=== PATIENT | female | born 1990 | race African-American/Black ===

== ENCOUNTER 2017-10-23 20:14 | Emergency (ER) | payer MEDICAID, OTHER ==
[~2017-10-23] VITALS: Ht 170.2 cm; Wt 118.5 kg
[2017-10-24] MEDS ORDERED: IBUPROFEN 600MG TABLET PO ONE (01:45)
[2017-10-24] MEDS ORDERED: OSELTAMIVIR 75MG CAPSULE PO ONE (01:45)
[2017-10-24 02:15] VITALS: BP 138/79
== END 2017-10-24 02:15 | disposition home or self-care (01) ==
LOC: ER 21:00
DX: J11.1 Influenza due to unidentified influenza virus with other respiratory manifestations (principal); F17.210 Nicotine dependence, cigarettes, uncomplicated
CPT/HCPCS: 87804; 99284

== ENCOUNTER 2018-06-14 11:09 | Emergency (ER) | payer OTHER ==
[~2018-06-14] VITALS: Ht 170.2 cm; Wt 95.0 kg
[2018-06-14 11:44] VITALS: BP 133/81
== END 2018-06-14 16:49 | disposition left against medical advice (07) ==
LOC: ER 14:41
DX: R07.9 Chest pain, unspecified (principal); Z53.21 Procedure and treatment not carried out due to patient leaving prior to being seen by health care provider
CPT/HCPCS: 93005

== ENCOUNTER 2018-10-16 01:26 | Emergency (ER) | payer OTHER, MEDICAID ==
[~2018-10-16] VITALS: Ht 170.2 cm; Wt 117.1 kg
[2018-10-16] MEDS ORDERED: AMOXICILLIN/POTASSIUM CLAVULANATE 875/125MG TAB PO ONE (03:00)
[2018-10-16] MEDS ORDERED: PROMETHAZINE/DEXTROMETHORPHAN 6.25-15MG/5ML BOTTLE 120ML PO PRN (03:15)
[2018-10-16] MEDS ORDERED: NEOMYCIN-POLYMYXIN B-HYDROCORTISONE 1% OTIC SOLN 10ML RIGHT EAR ONE (03:15)
[2018-10-16 04:03] VITALS: BP 11/75
== END 2018-10-16 04:06 | disposition home or self-care (01) ==
LOC: ER 01:26
DX: B34.9 Viral infection, unspecified (principal); H60.501 Unspecified acute noninfective otitis externa, right ear; F17.200 Nicotine dependence, unspecified, uncomplicated
CPT/HCPCS: 81025; 99283

== ENCOUNTER 2022-11-19 13:35 | Emergency (ER) | payer MEDICAID, OTHER | END 2022-11-19 15:03 | disposition left against medical advice (07) | LOC: ER 13:43 | DX: Z53.21 Procedure and treatment not carried out due to patient leaving prior to being seen by health care provider (principal) ==

== ENCOUNTER 2022-11-19 16:13 | Emergency (ER) | payer MEDICAID ==
[~2022-11-19] VITALS: Ht 177.8 cm; Wt 106.0 kg
[2022-11-19 17:12] VITALS: BP 141/88
== END 2022-11-19 19:06 | disposition home or self-care (01) ==
LOC: ER 16:13
DX: S09.21XA Traumatic rupture of right ear drum, initial encounter (principal); W22.8XXA Striking against or struck by other objects, initial encounter; R03.0 Elevated blood-pressure reading, without diagnosis of hypertension; Y93.E8 Activity, other personal hygiene; Y92.012 Bathroom of single-family (private) house as the place of occurrence of the external cause
CPT/HCPCS: 81025; 99282

== ENCOUNTER 2024-03-31 04:10 | Emergency (ER) | payer MEDICAID ==
[~2024-03-31] VITALS: Ht 170.2 cm; Wt 118.0 kg
[2024-03-31 04:19] VITALS: TEMP 98.2; O2SAT 99
[2024-03-31] MEDS: DEXAMETHASONE 2MG TABLET PO ONE (06:00)
[2024-03-31] MEDS ORDERED: AMOX1TAB16 MT (06:01)
[2024-03-31] MEDS ORDERED: IBUP-2028 MT (06:03)
[2024-03-31] MEDS ORDERED: GUAI600T26 MT (06:03)
[2024-03-31] MEDS: AMOXICILLIN/POTASSIUM CLAVULANATE 875/125MG TAB PO ONE (06:42)
[2024-03-31 06:43] VITALS: BP 132/76; PULSE 104; RESP 18
[2024-03-31] MEDS: IBUPROFEN 400MG TABLET PO ONE (06:43)
== END 2024-03-31 07:04 | disposition home or self-care (01) ==
LOC: ER 04:33
DX: J06.9 Acute upper respiratory infection, unspecified (principal); J02.9 Acute pharyngitis, unspecified
CPT/HCPCS: 99284; 87430; 87070; 87804 ×2; J8540